=== PATIENT | male | born 1930 | race Caucasian/White ===

== ENCOUNTER → 2016-05-14 | Outpatient (REF) | payer MEDICARE, BC | LOC: M LAB REF 12:02 | PROVIDERS: ATTEND Family Medicine | DX: I10 Essential (primary) hypertension (principal); E29.1 Testicular hypofunction; N52.9 Male erectile dysfunction, unspecified ==

== ENCOUNTER → 2016-08-20 | Outpatient (REF) | payer MEDICARE, BC | LOC: M LAB REF 12:39 | PROVIDERS: ATTEND Family Medicine | DX: E29.1 Testicular hypofunction (principal); N52.9 Male erectile dysfunction, unspecified ==

== ENCOUNTER → 2017-02-28 | Outpatient (REF) | payer MEDICARE, BC | LOC: M LAB REF 12:57 | PROVIDERS: ATTEND Family Medicine | DX: E29.1 Testicular hypofunction (principal); D51.8 Other vitamin B12 deficiency anemias ==

== ENCOUNTER 2017-03-31 13:09 | Day surgery (SDC) | payer MEDICARE, BC ==
[2017-03-31] MEDS ORDERED: LR 1,000 ML IV (13:15)
[2017-03-31] MEDS ORDERED: PROPOFOL 200 MG/20 ML VIAL As Ordered (14:20)
[2017-03-31] MEDS ORDERED: fentaNYL 100 MCG/2 ML INJECTION (J3010) As Ordered (14:20)
[2017-03-31] MEDS ORDERED: LIDOCAINE 2% INJ 100 MG/5 ML SDV (FOR ANES.) As Ordered (14:20)
[2017-03-31] MEDS ORDERED: MIDAZOLAM INJ 2 MG/2 ML VIAL (J2250) As Ordered (14:21)
[2017-03-31] MEDS: LIDOCAINE W/EPINEPHRINE 1% 20ML VIAL As Ordered (15:13)
== END 2017-03-31 17:15 | disposition home or self-care (01) ==
LOC: M SDC 13:09
DX: C43.62 Malignant melanoma of left upper limb, including shoulder (principal); L57.8 Other skin changes due to chronic exposure to nonionizing radiation; I45.10 Unspecified right bundle-branch block; I10 Essential (primary) hypertension; E78.00 Pure hypercholesterolemia, unspecified; K21.9 Gastro-esophageal reflux disease without esophagitis; Z86.718 Personal history of other venous thrombosis and embolism; Z79.899 Other long term (current) drug therapy; Z79.02 Long term (current) use of antithrombotics/antiplatelets; Z79.82 Long term (current) use of aspirin; Z95.828 Presence of other vascular implants and grafts; Z87.891 Personal history of nicotine dependence
CPT/HCPCS: 11602

== ENCOUNTER → 2017-06-04 | Outpatient (REF) | payer MEDICARE, BC ==
[2017-06-06 00:06] LABS: TESTOSTERONE FREE (DIRECT) 9.7 pg/mL (6.6-18.1)
== END ==
LOC: M LAB REF 13:26
DX: E29.1 Testicular hypofunction (principal)
CPT/HCPCS: 84403

== ENCOUNTER → 2017-09-05 | Outpatient (REF) | payer MEDICARE, BC ==
[2017-09-05 12:55] LABS: VITAMIN B12 LEVEL 1078 PG/ML (247-911)
[2017-09-05 12:55] LABS: TESTOSTERONE 437 NG/DL (241-827)
== END ==
LOC: M LAB REF 12:15
DX: E29.1 Testicular hypofunction (principal); D51.8 Other vitamin B12 deficiency anemias
CPT/HCPCS: 84403

== ENCOUNTER 2017-09-25 08:48 | Emergency (ER) | payer MEDICARE, BC ==
[2017-09-25] MEDS: NS 500 ML IV (09:45)
[2017-09-25 10:02] LABS: BASO # 0.1 10^3/uL (0.0-0.2); BASO % 0.8 % (0.0-1.0); EOS # 0.1 10^3/uL (0.0-0.50); EOS % 1.8 % (0.0-3.0); HEMATOCRIT 37.7 % (42.0-52.0); HEMOGLOBIN 12.3 g/dl (13.5-17.5); IMMATURE GRANULOCYTE % 0.4 % (0-3.0); LYMPH # 1.1 10^3/uL (1.5-4.5); LYMPH % 13.5 % (24.0-44.0); MEAN CORPUSCULAR HEMOGLOBIN 32.2 pg (27.0-33.0); MEAN CORPUSCULAR HGB CONC 32.6 g/dl (32.0-36.5); MEAN CORPUSCULAR VOLUME 98.7 fl (80.0-96.0); MONO # 0.9 10^3/uL (0.0-0.8); MONO % 11.5 % (0.0-5.0); NEUTROPHILS # 5.7 10^3/uL (1.8-7.7); PLATELET COUNT, AUTOMATED 246 10^3/uL (150-450); RED BLOOD COUNT 3.82 10^6/uL (4.30-6.10); RED CELL DISTRIBUTION WIDTH 14.6 % (11.5-14.5); WHITE BLOOD COUNT 7.8 10^3/uL (4.0-10.0)
[2017-09-25 10:31] LABS: ANION GAP 5 MEQ/L (8-16); BLOOD UREA NITROGEN 22 MG/DL (7-18); CALCIUM LEVEL 8.6 MG/DL (8.8-10.2); CARBON DIOXIDE LEVEL 29 MEQ/L (21-32); CHLORIDE LEVEL 107 MEQ/L (98-107); CREATININE FOR GFR 1.36 MG/DL (0.70-1.30); GLUCOSE, FASTING 96 MG/DL (70-100); POTASSIUM SERUM 4.4 MEQ/L (3.5-5.1); SODIUM LEVEL 141 MEQ/L (136-145)
[2017-09-25 10:33] LABS: LACTIC ACID SEPSIS PROTOCOL 1.3 MMOL/L (0.4-2.0)
[2017-09-25 10:40] LABS: INFLUENZA A AMPLIFICATION NEGATIVE (NEGATIVE); INFLUENZA B AMPLIFICATION NEGATIVE (NEGATIVE)
[2017-09-25 11:07] LABS: CPK CREATINE PHOSPHOKINASE 52 U/L (39-308)
[2017-09-25 11:25] LABS: CK-MB VALUE MASS < 1.0 NG/ML (<3.6); MB/CK RELATIVE INDEX 1.92 (< OR =4); TROPONIN I < 0.02 NG/ML (< 0.10)
[2017-09-25 11:45] LABS: KETONE, URINE AUTO RFX TRACE mg/dL (NEGATIVE); LEUKOCYTE ESTERASE UR AUTO RFX NEGATIVE (NEGATIVE); MUCUS, URINE RFX SMALL (NEGATIVE); NITRITE, URINE AUTO RFX NEGATIVE (NEGATIVE); RBC, URINE AUTO RFX 1 /HPF (0-3); SPECIFIC GRAVITY UR AUTO RFX 1.023 (1.002-1.035); SQUAM EPITHELIAL CELL UR AURFX 0 /HPF (0-6); WBC, URINE AUTO RFX 1 /HPF (0-3)
== END 2017-09-25 12:30 | disposition home or self-care (01) ==
LOC: M ED 08:48
DX: J06.9 Acute upper respiratory infection, unspecified (principal); E86.0 Dehydration; I45.10 Unspecified right bundle-branch block; Z95.5 Presence of coronary angioplasty implant and graft; Z85.828 Personal history of other malignant neoplasm of skin; E78.00 Pure hypercholesterolemia, unspecified; I10 Essential (primary) hypertension; K59.00 Constipation, unspecified; Z79.82 Long term (current) use of aspirin; Z79.899 Other long term (current) drug therapy
CPT/HCPCS: 71046

== ENCOUNTER 2018-02-08 12:21 | Emergency (ER) | payer MEDICARE, BC | END 2018-02-08 16:49 | disposition home or self-care (01) | LOC: M ED 12:21 | DX: S43.401A Unspecified sprain of right shoulder joint, initial encounter (principal); M25.511 Pain in right shoulder; R20.2 Paresthesia of skin; X58.XXXA Exposure to other specified factors, initial encounter; Y92.89 Other specified places as the place of occurrence of the external cause; I10 Essential (primary) hypertension; E78.9 Disorder of lipoprotein metabolism, unspecified; Z79.899 Other long term (current) drug therapy; Z79.02 Long term (current) use of antithrombotics/antiplatelets; Z79.82 Long term (current) use of aspirin | CPT/HCPCS: 73030 ==

== ENCOUNTER 2018-02-17 09:52 | Emergency (ER) | payer MEDICARE, BC ==
[2018-02-17 10:39] LABS: BASO % 0.2 % (0.0-1.0); EOS % 0.2 % (0.0-3.0); HEMATOCRIT 43.4 % (42.0-52.0); HEMOGLOBIN 14.2 g/dl (13.5-17.5); IMMATURE GRANULOCYTE % 1.5 % (0-3.0); LYMPH # 1.7 10^3/uL (1.5-4.5); LYMPH % 13.4 % (24.0-44.0); MEAN CORPUSCULAR HEMOGLOBIN 32.1 pg (27.0-33.0); MEAN CORPUSCULAR HGB CONC 32.7 g/dl (32.0-36.5); MEAN CORPUSCULAR VOLUME 98.2 fl (80.0-96.0); MONO # 0.9 10^3/uL (0.0-0.8); MONO % 6.9 % (0.0-5.0); NEUTROPHILS # 9.9 10^3/uL (1.8-7.7); NEUTROPHILS % 77.8 % (36.0-66.0); PLATELET COUNT, AUTOMATED 275 10^3/uL (150-450); RED BLOOD COUNT 4.42 10^6/uL (4.30-6.10); RED CELL DISTRIBUTION WIDTH 13.9 % (11.5-14.5); WHITE BLOOD COUNT 12.7 10^3/uL (4.0-10.0)
[2018-02-17 11:10] LABS: ANION GAP 8 MEQ/L (8-16); BLOOD UREA NITROGEN 27 MG/DL (7-18); CALCIUM LEVEL 9.2 MG/DL (8.8-10.2); CARBON DIOXIDE LEVEL 27 MEQ/L (21-32); CHLORIDE LEVEL 105 MEQ/L (98-107); CPK CREATINE PHOSPHOKINASE 33 U/L (39-308); GLOMERULAR FILTRATION RATE 55.7 (>35); GLUCOSE, FASTING 97 MG/DL (70-100); MB/CK RELATIVE INDEX 3.64 (< OR =4); POTASSIUM SERUM 3.9 MEQ/L (3.5-5.1); SODIUM LEVEL 140 MEQ/L (136-145); TROPONIN I < 0.02 NG/ML (< 0.10)
== END 2018-02-17 13:05 | disposition home or self-care (01) ==
LOC: M ED 09:52
DX: I10 Essential (primary) hypertension (principal); I45.10 Unspecified right bundle-branch block; F41.9 Anxiety disorder, unspecified; K57.92 Diverticulitis of intestine, part unspecified, without perforation or abscess without bleeding; Z95.5 Presence of coronary angioplasty implant and graft; Z79.899 Other long term (current) drug therapy; Z79.02 Long term (current) use of antithrombotics/antiplatelets; Z79.82 Long term (current) use of aspirin
CPT/HCPCS: 71046

== ENCOUNTER 2018-03-05 11:01 | Emergency (ER) | payer MEDICARE, BC ==
[2018-03-05] MEDS: traMADol 50 MG TAB PO (12:02)
== END 2018-03-05 12:08 | disposition home or self-care (01) ==
LOC: M ED 11:01
DX: M25.511 Pain in right shoulder (principal); F41.9 Anxiety disorder, unspecified; Z95.5 Presence of coronary angioplasty implant and graft; Z79.899 Other long term (current) drug therapy
CPT/HCPCS: 99283

== ENCOUNTER → 2018-03-16 | Outpatient (REF) | payer MEDICARE, BC ==
[2018-03-17 13:08] LABS: TESTOSTERONE 715 NG/DL (241-827)
== END ==
LOC: M LAB REF 11:58
DX: E29.1 Testicular hypofunction (principal)
CPT/HCPCS: 84403

== ENCOUNTER → 2018-04-09 | Outpatient (REF) | payer MEDICARE, BC ==
[~2018-04-09] MED LIST: AMLO2.5T3 PO; ANDR1.62 TD; ASPI1TAB PO; BENZ200C70 PO; LATA5OPD OU; OMEP40CA2 PO; PLAV1TAB2 PO; PROC5TA PO; ROSU5TAB4 PO; SPIR50TA4 PO; TELM1TAB PO; TRAM50TA2 PO; TYLE500T78 PO; VITA200016 PO; VITA500T53 PO; ZETI10TA30 PO
== END ==
LOC: M LAB REF 11:39
PROVIDERS: ATTEND Physician Assistant
DX: M79.603 Pain in arm, unspecified (principal)

== ENCOUNTER 2018-04-22 11:05 | Emergency (ER) | payer MEDICARE, BC ==
[~2018-04-22] VITALS: Ht 162.6 cm; Wt 66.4 kg
[~2018-04-22 11:05] MED LIST changes: -OMEP40CA2 PO
--- NOTE | 2018-04-22 12:04 | REP ---
CT Head without contrast HISTORY: Altered mental status COMPARISON: 08/30/2015 Areas of decreased attenuation are present in the periventricular white matter. This represents small-vessel ischemic disease. There is no intraparenchymal hemorrhage, acute infarct, mass or midline shift. The ventricular system the ventricular system and cortical sulci as well as subarachnoid space in the posterior fossa are dilated consistent with moderate volume loss. There is no extra cerebral collection. There is no fracture. The visualized sinuses are clear. IMPRESSION: 1. Small vessel ischemic disease. 2. Moderate volume loss. Electronically Signed by Devin Jiménez MD 04/22/2018 11:55 A
--- NOTE | 2018-04-22 12:05 | REP ---
Chest two views HISTORY: Altered mental status Comparison: 02/17/2018 The lungs are clear. The heart is normal in size. The pulmonary vasculature is normal in appearance. The bony structure is intact. IMPRESSION: No acute disease. Electronically Signed by Devin Jiménez MD 04/22/2018 11:57 A
[2018-04-22 12:12] LABS: VENOUS BASE EXCESS 0.1 (-2.0-2.0); VENOUS HCO3 26.3 MEQ/L (23.0-27.0); VENOUS O2 SATURATION 71.9 % (60.0-80.0); VENOUS PARTIAL PRESSURE CO2 48.8 mmHg (38.0-50.0); VENOUS PARTIAL PRESSURE O2 40.4 mmHg (30.0-50.0); VENOUS TOTAL CO2 27.8 MEQ/L (24.0-28.0)
[2018-04-22 12:17] LABS: BASO # 0.1 10^3/uL (0.0-0.2); BASO % 1.1 % (0.0-1.0); EOS # 0.4 10^3/uL (0.0-0.50); EOS % 5.3 % (0.0-3.0); HEMOGLOBIN 12.8 g/dl (13.5-17.5); LYMPH # 1.4 10^3/uL (1.5-4.5); MEAN CORPUSCULAR HEMOGLOBIN 32.7 pg (27.0-33.0); MEAN CORPUSCULAR HGB CONC 32.8 g/dl (32.0-36.5); MEAN CORPUSCULAR VOLUME 99.5 fl (80.0-96.0); MONO # 0.8 10^3/uL (0.0-0.8); MONO % 10.4 % (0.0-5.0); NEUTROPHILS # 4.8 10^3/uL (1.8-7.7); NEUTROPHILS % 64.5 % (36.0-66.0); PLATELET COUNT, AUTOMATED 298 10^3/uL (150-450); RED BLOOD COUNT 3.92 10^6/uL (4.30-6.10); WHITE BLOOD COUNT 7.5 10^3/uL (4.0-10.0)
[2018-04-22 12:52] LABS: ALBUMIN 3.3 GM/DL (3.2-5.2); ALT/SGPT 24 U/L (12-78); BILIRUBIN,DIRECT < 0.1 MG/DL (0.0-0.2); BILIRUBIN,TOTAL 0.2 MG/DL (0.2-1.0); BLOOD UREA NITROGEN 17 MG/DL (7-18); CALCIUM LEVEL 8.5 MG/DL (8.8-10.2); CARBON DIOXIDE LEVEL 29 MEQ/L (21-32); CHLORIDE LEVEL 106 MEQ/L (98-107); CPK CREATINE PHOSPHOKINASE 51 U/L (39-308); CREATININE FOR GFR 1.02 MG/DL (0.70-1.30); GLOMERULAR FILTRATION RATE > 60.0 (>35); GLUCOSE, FASTING 84 MG/DL (70-100); MB/CK RELATIVE INDEX 2.35 (< OR =4); POTASSIUM SERUM 4.5 MEQ/L (3.5-5.1); SODIUM LEVEL 140 MEQ/L (136-145); TOTAL PROTEIN 5.7 GM/DL (6.4-8.2); TROPONIN I < 0.02 NG/ML (< 0.10)
--- NOTE | 2018-04-22 13:38 | ECGEPIP ---
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
[2018-04-22 14:33] VITALS: BP 174/74
[2018-04-22] MEDS ORDERED: OMEP40CA2 PO (14:43)
== END 2018-04-22 14:53 | disposition home or self-care (01) ==
LOC: M ED 11:05
DX: K29.00 Acute gastritis without bleeding (principal); M75.31 Calcific tendinitis of right shoulder

== ENCOUNTER → 2018-09-24 | Outpatient (REF) | payer MEDICARE, BC ==
[~2018-09-24] MED LIST changes: -ASPI1TAB PO; +ASPI81TA26 PO; +LATA0.0013 OU; -LATA5OPD OU; +OMEP40CA2 PO; +VITA500T17 PO; -VITA500T53 PO
== END ==
LOC: M LAB REF 12:54
PROVIDERS: ATTEND Family Medicine
DX: E29.1 Testicular hypofunction (principal)

== ENCOUNTER → 2019-03-30 | Outpatient (REF) | payer MEDICARE, BC ==
[~2019-03-30] MED LIST changes: -OMEP40CA2 PO; +OMEP40CA97 PO; -ROSU5TAB4 PO; +ROSU5TAB5 PO; +ZETI10TA16 PO; -ZETI10TA30 PO
== END ==
LOC: M LAB REF 17:41
PROVIDERS: ATTEND Family Medicine
DX: D51.8 Other vitamin B12 deficiency anemias (principal)

== ENCOUNTER → 2019-09-23 | Outpatient (REF) | payer MEDICARE, BC ==
[~2019-09-23] MED LIST changes: -TELM1TAB PO; +TELM1TAB35 PO
[2019-09-23 14:15] LABS: TESTOSTERONE 335 NG/DL (241-827)
[2019-09-24 13:02] LABS: VITAMIN B12 LEVEL 340 PG/ML (247-911)
== END ==
LOC: M LAB REF 12:50
PROVIDERS: ATTEND Family Medicine
DX: E29.1 Testicular hypofunction (principal)

== ENCOUNTER → 2020-10-10 | Outpatient (REF) | payer MEDICARE, BC ==
[~2020-10-10] MED LIST changes: +OMEP40CA4 PO; -OMEP40CA97 PO; -PROC5TA PO; +PROC5TAB57 PO
== END ==
LOC: M LAB REF 12:24
PROVIDERS: ATTEND Family Medicine
DX: E29.1 Testicular hypofunction (principal)

== ENCOUNTER 2021-11-07 22:26 | Emergency (ER) | payer MEDICARE, BC ==
[~2021-11-07] VITALS: Ht 162.6 cm; Wt 68.1 kg
[2021-11-07 23:21] LABS: BASO # 0.1 10^3/uL (0.0-0.2); BASO % 1.1 % (0.0-1.0); EOS # 0.4 10^3/uL (0.0-0.5); EOS % 5.7 % (0.0-3.0); HEMATOCRIT 37.3 % (42.0-52.0); HEMOGLOBIN 12.1 g/dl (13.5-17.5); LYMPH # 2.3 10^3/uL (1.5-5.0); LYMPH % 37.7 % (24.0-44.0); MEAN CORPUSCULAR HEMOGLOBIN 32.4 pg (27.0-33.0); MEAN CORPUSCULAR HGB CONC 32.4 g/dl (32.0-36.5); MONO # 0.6 10^3/uL (0.0-0.8); NEUTROPHILS # 2.8 10^3/uL (1.5-8.5); NEUTROPHILS % 45.2 % (36.0-66.0); PLATELET COUNT, AUTOMATED 255 10^3/uL (150-450); RED BLOOD COUNT 3.73 10^6/uL (4.30-6.10); WHITE BLOOD COUNT 6.1 10^3/uL (4.0-10.0)
[2021-11-07 23:47] LABS: BLOOD UREA NITROGEN 31 MG/DL (7-18); CALCIUM LEVEL 9.3 MG/DL (8.8-10.2); CARBON DIOXIDE LEVEL 27 MEQ/L (21-32); CHLORIDE LEVEL 106 MEQ/L (98-107); CREATININE FOR GFR 1.06 MG/DL (0.70-1.30); GLOMERULAR FILTRATION RATE > 60.0 (>35); GLUCOSE, FASTING 101 MG/DL (70-100); SODIUM LEVEL 140 MEQ/L (136-145)
[2021-11-08 00:06] LABS: CK-MB VALUE MASS 3.1 NG/ML (<3.6); MB/CK RELATIVE INDEX 3.26 (< OR =4)
[2021-11-08] MEDS ORDERED: ISOVUE-370 76% 100ML VIAL As Ordered ONE (01:00)
[2021-11-08 01:02] LABS: VENOUS BASE EXCESS 1.8 (-2.0-2.0); VENOUS PARTIAL PRESSURE CO2 50.4 mmHg (38.0-50.0); VENOUS PARTIAL PRESSURE O2 29.3 mmHg (30.0-50.0); VENOUS PH 7.363 UNITS (7.330-7.430); VENOUS TOTAL CO2 29.6 MEQ/L (24.0-28.0)
[2021-11-08 01:09] LABS: INR 0.96; PARTIAL THROMBOPLASTIN TIME 27.3 SECONDS (25.9-37.0); PROTHROMBIN TIME 13.2 SECONDS (12.7-14.5)
[2021-11-08 01:18] LABS: CK-MB VALUE MASS 2.9 NG/ML (<3.6); MB/CK RELATIVE INDEX 2.82 (< OR =4)
[2021-11-08] MEDS ORDERED: CARA1TAB6 PO (01:42)
[2021-11-08 04:17] LABS: CK-MB VALUE MASS 2.8 NG/ML (<3.6); MB/CK RELATIVE INDEX 2.57 (< OR =4)
[2021-11-08 04:30] VITALS: BP 161/69
== END 2021-11-08 05:51 | disposition home or self-care (01) ==
LOC: EDBD 22:26 → M ED 22:26
DX: R07.89 Other chest pain (principal); R00.1 Bradycardia, unspecified; I44.0 Atrioventricular block, first degree; I45.10 Unspecified right bundle-branch block; I10 Essential (primary) hypertension; Z86.711 Personal history of pulmonary embolism; Z86.718 Personal history of other venous thrombosis and embolism; Z95.828 Presence of other vascular implants and grafts; Z79.82 Long term (current) use of aspirin; Z79.899 Other long term (current) drug therapy
CPT/HCPCS: 71045; 71275; 80048; 82550; 82553; 82803; 83880; 84484; 85025; 85610; 85730; 93005; 93041; 93971; 94760; 99285; Q9967

== ENCOUNTER → 2021-12-03 | Outpatient (REF) | payer MEDICARE, BC ==
[~2021-12-03] MED LIST changes: +CARA1TAB6 PO
== END ==
LOC: M LAB REF 16:14
PROVIDERS: ATTEND Physician Assistant Medical
DX: R10.9 Unspecified abdominal pain (principal)

== ENCOUNTER → 2021-12-13 | Outpatient (CLI) | payer MEDICARE, BC | LOC: M RAD 13:28 | PROVIDERS: ATTEND Physician Assistant | DX: I70.213 Atherosclerosis of native arteries of extremities with intermittent claudication, bilateral legs (principal) ==